=== PATIENT | male | born 1940 | race Caucasian/White ===

== ENCOUNTER 2017-02-18 09:55 | Inpatient (IN) | payer MEDICARE ==
--- NOTE | 2017-02-18 10:22 | C.PDOC ---
History Of Present Illness 76-year-old male, PMHx includes Cardiac Arrythmia, Hypertension and Hyperlipidemia, presents to the emergency department, accompanied by , with complaints of syncope. Patient was having breakfast about twenty-minutes ago, when he became light headed, and had a syncopal episode that was witnessed by . Patient states he only remembers feeling light headed, and waking up on the floor. Patient returned to consciousness after a few seconds. Upon EMS arrival, patient had a second witnessed syncopal episode. In ED, he states he feels better. Denies weakness, light headedness, chest pain, shortness of breath , dizziness, or any other associated symptoms at this time. PMD Krissy Mcgarry MD. Time Seen by Provider: 02/18/17 10:04 Chief Complaint (Nursing): Syncope History Per: Patient, EMS, Family History/Exam Limitations: no limitations Onset/Duration Of Symptoms: Other (just prior to arrival) Current Symptoms Are (Timing): Better Past Medical History Reviewed: Historical Data, Nursing Documentation, Vital Signs Vital Signs: Last Vital Signs Temp 97.8 F 02/18/17 13:05 Pulse 56 L 02/18/17 13:05 Resp 18 02/18/17 13:05 BP 160/76 H 02/18/17 13:05 Pulse Ox 100 02/18/17 13:05 - Medical History PMH: Cardia Arrhythmia (in his history), HTN, Hyperlipidemia Family History: States: No Known Family Hx - Social History Hx Tobacco Use: No Hx Alcohol Use: No Hx Substance Use: No - Immunization History Hx Tetanus Toxoid Vaccination: No Hx Influenza Vaccination: Yes Hx Pneumococcal Vaccination: No Review Of Systems Except As Marked, All Systems Reviewed And Found Negative. Constitutional: Negative for: Fever, Chills Cardiovascular: Negative for: Chest Pain, Palpitations, Edema Respiratory: Negative for: Shortness of Breath Gastrointestinal: Negative for: Nausea, Vomiting Musculoskeletal: Negative for: Back Pain Neurological: Positive for: Other (Syncope) Physical Exam - Physical Exam Appears: Non-toxic, No Acute Distress Skin: Warm, Dry, No Rash Head: Atraumatic, Normacephalic Eye(s): bilateral: Normal Inspection, PERRL, EOMI Nose: Normal Oral Mucosa: Moist Lips: Normal Appearing Neck: Normal ROM Cardiovascular: Rhythm Regular (Bradycardia), No Murmur Respiratory: Normal Breath Sounds, No Accessory Muscle Use Extremity: Normal ROM Neurological/Psych: Oriented x3, Normal Speech ED Course And Treatment - Laboratory Results Result Diagrams: 02/18/17 10:19 02/18/17 10:19 O2 Sat by Pulse Oximetry: 100 Medical Decision Making Medical Decision Making: Impression 76y/o M comes in s/p syncopal episode witnessed by Diff Dx (includes but not limited to) Cardiac Arrythmia vs Symptomatic Bradycardia vs other cardiac etiology Prior Visits Notes and records from previous visits were reviewed. Patient was seen in ED on 06/14/13 s/p fall. Plan: * CT Head * EKG * CMP, SHERLYN Panel * CBC, PTT, PT * Chest X-Ray * Blood Glucose POC Patient's HR in the 50's throughput ED stay. He's comfortable with no acute distress. Orthostatics normal. CT head reviewed and negative. Discussed case with Dr. Mcgarry, PMD, who will accept the case to his service. He recommended Dr. Molina's service for cardiology. Consult was placed. Disposition Discussed With : Krissy Mcgarry Doctor Will See Patient In The: ED Counseled Patient/Family Regarding: Studies Performed, Diagnosis - Disposition Disposition: HOSPITALIZED Disposition Time: 13:05 Condition: FAIR - Clinical Impression Clinical Impression: Syncope, Symptomatic anemia - Scribe Statement The provider has reviewed the documentation as recorded by the Scribe (Gabi San)
[2017-02-18 10:34] LABS: PROTHROMBIN TIME 11.2 SECONDS (9.7-12.2)
[2017-02-18 10:35] LABS: BASO % 0.6 % (0.0-2.0); EOS # 0.1 K/uL (0.0-0.7); EOS % 1.5 % (0.0-4.0); HEMOGLOBIN 13.3 g/dL (12.0-18.0); LYMPH # 1.5 K/uL (1.0-4.3); LYMPH % 27.1 % (20.0-40.0); MEAN CELL VOLUME 87.4 fL (80.0-94.0); MEAN CORPUSCULAR HGB CONC 34.3 g/dL (33.0-37.0); MEAN PLATELET VOLUME 9.4 fL (7.2-11.7); MONO # 0.6 K/uL (0.0-0.8); MONO % 10.8 % (0.0-10.0); NEUT # 3.2 K/uL (1.8-7.0); RBC 4.44 Mil/uL (4.40-5.90); RED CELL DISTRIBUTION WIDTH 13.1 % (11.5-14.5); WHITE BLOOD COUNT 5.4 K/uL (4.8-10.8)
[2017-02-18 10:37] LABS: ALBUMIN 3.7 g/dL (3.5-5.0)
[2017-02-18 10:40] LABS: AST/SGOT 31 U/L (17-59); GFR AFRICAN-AMERICAN > 60; GFR NON-AFRICAN AMERICAN > 60
--- NOTE | 2017-02-18 10:40 | RAD ---
PROCEDURE: CHEST RADIOGRAPH, 1 VIEW HISTORY: Syncope COMPARISON: GoNone available. FINDINGS: LUNGS: The lungs are clear. PLEURA: No pneumothorax or pleural fluid seen. CARDIOVASCULAR: Normal. OSSEOUS STRUCTURES: No significant abnormalities. VISUALIZED UPPER ABDOMEN: Normal. OTHER FINDINGS: None. IMPRESSION: No active pulmonary disease.
[2017-02-18 10:41] LABS: ALT/SGPT 25 U/L (21-72); BLOOD UREA NITROGEN 16 mg/dL (9-20); CALCIUM 8.5 mg/dl (8.6-10.4)
[2017-02-18 10:50] LABS: CK-MB 0.85 ng/mL (0.0-3.38)
--- NOTE | 2017-02-18 11:20 | CT ---
PROCEDURE: CT HEAD WITHOUT CONTRAST. HISTORY: syncope COMPARISON: Noncontrast head CT performed 04/08/15 TECHNIQUE: Axial computed tomography images were obtained through the head/brain without intravenous contrast. Radiation dose: Total exam DLP = 790.02 mGy-cm. This CT exam was performed using one or more of the following dose reduction techniques: Automated exposure control, adjustment of the mA and/or kV according to patient size, and/or use of iterative reconstruction technique. FINDINGS: HEMORRHAGE: No intracranial hemorrhage. BRAIN: Diffuse atrophy with prominence of the ventricles and sulci noted. No mass effect or edema. Intracranial atherosclerotic calcifications. Mild scattered white matter hypodensities, which are nonspecific, but often seen with chronic microvascular ischemic disease. Please note that MRI with diffusion imaging is more sensitive in the detection of acute ischemic event. VENTRICLES: No hydrocephalus. CALVARIUM: Unremarkable. PARANASAL SINUSES: Unremarkable as visualized. No significant inflammatory changes. MASTOID AIR CELLS: Unremarkable as visualized. No inflammatory changes. OTHER FINDINGS: None. IMPRESSION: Generalized atrophy. Nonspecific white matter changes.
[2017-02-18 16:47] VITALS: RESP 20
[2017-02-19 07:32] LABS: FREE T4 0.88 ng/dL (0.78-2.19)
[2017-02-19 07:33] LABS: PROLACTIN 13.6 ng/mL (3.7-17.9)
[2017-02-19 08:22] LABS: FOLATE 15.7 ng/mL
--- NOTE | 2017-02-19 12:39 | MRI ---
PROCEDURE: MRI BRAIN WITHOUT CONTRAST HISTORY: stroke COMPARISON: Head CT 02/18/2017 TECHNIQUE: Multiplanar, multisequence MR images of the brain were obtained without intravenous contrast enhancement. FINDINGS: HEMORRHAGE: None DWI: No evidence of an acute or early subacute infarction. BRAIN PARENCHYMA: No mass effect or cortical edema. Mild expansion of the ventricular sulcal and cisternal spaces encounter compatible with diffuse cerebral atrophy. Chronic microangiopathy patterns reiterated as well as compared to prior head CT VENTRICLES: Unremarkable. No hydrocephalus. CRANIUM: Unremarkable. ORBITS: Grossly unremarkable. PARANASAL SINUSES/MASTOIDS: Right ethmoid sinusitis identified as well as bilateral mastoiditis, right greater than left. VASCULAR SYSTEM: Skull base flow voids intact. OTHER FINDINGS: None. IMPRESSION: 1. No evidence of an acute separate brain infarction this time. 2. Age-related degenerate changes are reiterated aspirate prior CT noted above and appear age-appropriate. 3. Incidental right ethmoid sinus disease again appreciated well as bilateral mastoiditis.
--- NOTE | 2017-02-19 12:44 | CARD ---
APPROVED REPORT EKG Measurement Heart [id number] MT [id number] <Conclusion> Sinus bradycardia Otherwise normal ECG
--- NOTE | 2017-02-19 15:02 | VASCLAB ---
PROCEDURE: HISTORY: Dizziness COMPARISON: None available. TECHNIQUE: Grayscale and duplex Doppler evaluation of the cervical carotid and vertebral arteries were performed. The common carotid, carotid bifurcations and cervical Internal Carotid Artery (ICA) and proximal External Carotid Artery (ECA) were evaluated. The vertebral arteries were evaluated for gross patency and flow direction. Report prepared by Yo Melendez, BS, RVT FINDINGS: RIGHT CAROTID ARTERIES: 1. Common Carotid Artery: No significant focal plaque formation of the right common carotid artery. Maximum Peak Systolic velocity: 81 cm/sec: End-diastolic velocity 10 cm/sec. 2. Carotid Bifurcation: plaque formation. Maximum Peak Systolic velocity: 67 cm/sec: End-diastolic velocity 9 cm/sec. 3. Internal Carotid Artery: Plaque description: 3.1. Proximal Segment: Peak systolic velocity 222 cm/sec: End-diastolic velocity 38 cm/sec - % stenosis 50-60% 3.2. Middle Segment: Peak systolic velocity 71 cm/sec: End-diastolic velocity 15 cm/sec - % stenosis 0-15% 3.3. Distal Segment: Peak systolic velocity 91 cm/sec: End-diastolic velocity 24 cm/sec - % stenosis 0-15% 4. External Carotid Artery: No significant focal plaque formation. Peak systolic velocity 130 cm/sec 5. ICA/CCA Ratio: 2.7 LEFT CAROTID ARTERIES: 1. Common Carotid Artery: No significant focal plaque formation of the left common carotid artery. Maximum Peak Systolic velocity: 97 cm/sec: End-diastolic velocity 16 cm/sec. 2. Carotid Bifurcation: plaque formation. Maximum Peak Systolic velocity: 103 cm/sec: End-diastolic velocity 14 cm/sec. 3. Internal Carotid Artery: Plaque description: 3.1. Proximal Segment: Peak systolic velocity 127 cm/sec: End-diastolic velocity 25 cm/sec - % stenosis 0-15% 3.2. Middle Segment: Peak systolic velocity 109 cm/sec: End-diastolic velocity 25 cm/sec - % stenosis 0-15% 3.3. Distal Segment: Peak systolic velocity 66 cm/sec: End-diastolic velocity 17 cm/sec - % stenosis 0-15% 4. External Carotid Artery: No significant focal plaque formation. Peak systolic velocity 180 cm/sec 5. ICA/CCA Ratio: 1.3 VERTEBRAL ARTERIES: 1. Right Vertebral Artery: The right vertebral artery flow direction is antegrade. 2. Left Vertebral Artery: The left vertebral artery flow direction is antegrade. OTHER FINDINGS: 1. Right Brachial Blood pressure: 164 mmHg. 2. Left Brachial Blood pressure: 160 mmHg. IMPRESSION: RIGHT: 50-60% stenosis of the right proximal ICA with mild hemodynamic significance. LEFT: Duplex scan does not suggest hemodynamically significant stenosis of the left extracranial carotid arteries.
[2017-02-19 16:02] VITALS: TEMP 97.3
--- NOTE | 2017-02-19 18:55 | CP.PCM.PN ---
Subjective - Date & Time of Evaluation Date of Evaluation: 02/19/17 Time of Evaluation: 18:30 - Subjective Subjective: Seen and examined No chest pain/dyspnea/dizziness Objective - Vital Signs/Intake and Output Vital Signs (last 24 hours): Temp Pulse Resp BP Pulse Ox 97.3 F L 57 L 20 131/70 99 02/19/17 16:01 02/19/17 16:01 02/19/17 16:01 02/19/17 16:01 02/19/17 16:01 Intake and Output: 02/19/17 02/19/17 06:59 18:59 Intake Total 350 Balance 350 - Medications Medications: Current Medications Aspirin (Aspirin) 325 mg PO DAILY [facility] Last Admin: 02/19/17 09:50 Dose: 325 mg Clopidogrel Bisulfate (Plavix) 75 mg PO DAILY [facility] Last Admin: 02/19/17 09:50 Dose: 75 mg Heparin Sodium (Porcine) (Heparin) 5,000 units SC Q8 [facility] Last Admin: 02/19/17 13:16 Dose: 5,000 units Rosuvastatin Calcium (Crestor) 5 mg PO HS [facility] Last Admin: 02/18/17 22:16 Dose: 5 mg - Labs Labs: PT 11.2 SECONDS (9.7-12.2) 02/18/17 10:19 INR 1.0 02/18/17 10:19 APTT 27 SECONDS (21-34) 02/18/17 10:19 - Constitutional Appears: Well, No Acute Distress - Head Exam Head Exam: ATRAUMATIC, NORMOCEPHALIC - Eye Exam Eye Exam: Normal appearance Pupil Exam: PERRL - ENT Exam ENT Exam: Mucous Membranes Moist - Neck Exam Neck Exam: Normal Inspection - Respiratory Exam Respiratory Exam: Clear to Ausculation Bilateral, NORMAL BREATHING PATTERN - Cardiovascular Exam Cardiovascular Exam: REGULAR RHYTHM, RRR, +S1, +S2. absent: JVD, Murmur - GI/Abdominal Exam GI & Abdominal Exam: Normal Bowel Sounds. absent: Organomegaly - Neurological Exam Neurological Exam: Alert, Awake, CN II-XII Intact, Oriented x3 - Psychiatric Exam Psychiatric exam: Normal Affect, Normal Mood - Skin Skin Exam: Normal Color Assessment and Plan (1) Syncope Status: Acute - Assessment and Plan (Free Text) Assessment: Godwin vasovagal ADmits to decreased PO fluid intake Echo in my preliminary review shows normalLV function, no significant valvular disease Elevated BP today Ambulates without symptoms Stable from cardiology perspective, may follow up as outpatient for event monitor
--- NOTE | 2017-02-19 19:43 | CARD ---
APPROVED REPORT EXAM: Two-dimensional and M-mode echocardiogram with Doppler and color Doppler. Other Information Quality : GoodRhythm : Bradycardia INDICATION Abnormal EKG/Arrhythmia RISK FACTORS Hypertension Hyperlipidemia M-Mode DIMENSIONS RVDd1.03 (2.1-3.2cm)Left Atrium (MM)3.95 (2.5-4.0cm) IVSd1.03 (0.7-1.1cm)Aortic Root3.61 (2.2-3.7cm) LVDd5.24 (4.0-5.6cm)Aortic Cusp Exc.1.66 (1.5-2.0cm) PWd0.77 (0.7-1.1cm)FS (%) 39 % LVDs3.21 (2.0-3.8cm)LVEF (%)69 (>50%) Mitral Valve MV E Gpywkolw81.0cm/sMV A Fivitqoh973.8cm/sE/A ratio0.7 TDI E/Lateral E'0.0E/Medial E'0.0 Tricuspid Valve TR Peak Gkedvlcp615ts/sTR Peak Gr.[id number] LEFT VENTRICLE The left ventricle is normal size. There is borderline concentric left ventricular hypertrophy. The left ventricular function is normal. The left ventricular ejection fraction is within the normal range. There is normal LV segmental wall motion. Transmitral Doppler flow pattern is Grade I-abnormal relaxation pattern. RIGHT VENTRICLE The right ventricle is normal size. There is normal right ventricular wall thickness. The right ventricular systolic function is normal. ATRIA The left atrium size is normal. The right atrium size is normal. AORTIC VALVE The aortic valve is not well visualized. There is trace aortic regurgitation. MITRAL VALVE The mitral valve is mildly thickened. TRICUSPID VALVE There is trace tricuspid regurgitation. PULMONIC VALVE There is trace pulmonic valvular regurgitation. GREAT VESSELS The aortic root is normal in size. PERICARDIAL EFFUSION There is a trace loculated anterior pericardial effusion. <Conclusion> The left ventricle is normal size. There is borderline concentric left ventricular hypertrophy. The left ventricular function is normal. The left ventricular ejection fraction is within the normal range. There is normal LV segmental wall motion. Transmitral Doppler flow pattern is Grade I-abnormal relaxation pattern. There is trace aortic regurgitation.
[2017-02-20 01:39] VITALS: O2SAT 98
[2017-02-20 08:14] VITALS: BP 146/73; PULSE 45
--- NOTE | 2017-02-20 14:01 | PN ---
DATE: 02/20/2017 NEUROLOGICAL PROBLEM: Transient ischemic attack. PHYSICAL EXAMINATION: VITAL SIGNS: Blood pressure 167/73, mean arterial pressure of 104, respiratory rate is 16, temperature 97.3 with pulse rate 51. The patient is more awake, alert, and oriented to person, place, and time. Communication only in [place]. The patient denies any complaints. The patient is ambulatory on his own. Examination does not change to compare with the previous examination. His workup; B12 of 372, TSH is 2.46, prolactin 13.6. Rheumatoid panel is negative. MRI of the brain shows significant atrophy without any acute process except chronic microvascular small vessel disease noted. The patient got to be out of the bed. When medically stable, the patient can be discharged and should have followup with me as an outpatient. The patient definitely need polysomnogram to rule out any sleep-related breathing disorders. Neno Ramirez MD
--- NOTE | 2017-02-20 14:02 | HP ---
HISTORY OF PRESENT ILLNESS: This is a 76-year-old male with history of multiple medical problems including coronary artery disease and carotid vascular disease who was brought to the emergency room after passing out for 3 times witnessed by his family. There was no symptoms suggestive of seizure. Patient was evaluated in the emergency room where patient was fully awake and alert and CAT scan of the head was negative. Patient was found to be slightly bradycardic with heart rate in the range of 41. Patient was evaluated by cardiology in the emergency room and he was admitted to telemetry floor for further management. REVIEW OF SYSTEMS: All other review of system is negative. ALLERGIES: NO KNOWN ALLERGY. HOME MEDICATIONS: 1. Simvastatin 40 mg daily. 2. Plavix 75 mg daily. 3. Ecotrin 81 mg daily. SOCIAL HISTORY: No history of smoking, ETOH, or substance abuse. FAMILY HISTORY: Noncontributory. PHYSICAL EXAMINATION: GENERAL: Patient is in bed comfortable, not in any cardiopulmonary distress. VITAL SIGNS: Blood pressure 160/76, temperature 97.8, respiratory rate 18, and pulse 56. HEENT: Pupils are equal and reactive to light. Normal-appearing mucosa, conjunctivae, oropharyngeal, and nasal membrane mucosa. NECK: Supple. No JVD. No carotid bruit. No lymph node. No thyromegaly. CHEST AND LUNGS: Bilateral symmetrical expansion. Good air exchange. No rales. No rhonchi. CARDIOVASCULAR SYSTEM: PMI not localized. S1 and S2. No additional sounds. ABDOMEN: Normoactive bowel sounds. No tenderness. No organomegaly. No masses. EXTREMITIES: No cyanosis. No clubbing. No edema. CENTRAL NERVOUS SYSTEM: Alert, awake, and oriented x3. No neurological deficit could be appreciated. ASSESSMENT: 1. Syncope. 2. Hypertension. 3. Hypercholesteremia. 4. History of coronary artery disease. PLAN: Continue bus monitor. Neuro check every 4 hours.. Neurology and cardiology evaluation. Resume patient's home medications. [facility] MD Zeferino
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
[2017-02-20] MEDS ORDERED: Fluticasone Nasal 50 mcg/Spray NAS SCH (18:00)
== END 2017-02-20 17:41 | disposition home or self-care (01) | DRG 69 ==
LOC: C.ER 09:55 → C.9E 11:32 → C.6T 12:59
PROVIDERS: ADMIT Internal Medicine; ATTEND Internal Medicine
DX: G45.9 Transient cerebral ischemic attack, unspecified (principal); D64.9 Anemia, unspecified; R00.1 Bradycardia, unspecified; I10 Essential (primary) hypertension; E78.5 Hyperlipidemia, unspecified; E78.00 Pure hypercholesterolemia, unspecified; I25.10 Atherosclerotic heart disease of native coronary artery without angina pectoris; Z79.02 Long term (current) use of antithrombotics/antiplatelets